=== PATIENT | female | born 1985 | race Caucasian/White ===

== ENCOUNTER 2017-04-26 11:16 | Emergency (ER) | payer OTHER ==
[~2017-04-26] VITALS: Ht 172.7 cm; Wt 63.6 kg
[~2017-04-26 11:16] MED LIST: IBUP800T28 PO; PREN1TAB47 PO
[2017-04-26 11:18] VITALS: BP 109/76; PULSE 72; RESP 15; O2SAT 100
--- NOTE | 2017-04-26 11:31 | ED.REPORT ---
HPI-Abd Pain F Under 40 Date of Service Apr 26, 2017 ED Provider: Rema Steele History of Present Illness: 31-year-old female here for right lower quadrant abdominal pain 3 days. He has been constant and annoying at a 5/10 on the pain scale. Tylenol helped a little bit. On day 1 she felt a little feverish, lightheaded, body aches but this has all resolved. At this point she feels okay just has the right lower quadrant pain still. No urinary symptoms, she is able to eat and drink although she has a decreased appetite. She has no history of ovarian cysts. She is not . has had a vasectomy. Last menstrual period 04/11/2017. No vaginal discharge. She is not nauseous and is not vomiting. No diarrhea or constipation. Her bowel movements seem to alleviate the pain a little bit. No history of abdominal surgeries. sHe is otherwise healthy. When asked to point to the pain she points on the lateral right lower abdomen. Nursing Notes Stated Complaint: RT SIDE PAIN Chief Complaint: Female Abdominal Pain Nursing Notes Reviewed: Yes Allergies: Coded Allergies: No Known Allergies (Verified Allergy, Unknown, 04/26/17) No Active Prescriptions or Reported Meds General Time Seen by MD: 11:24 Chief Complaint Abdominal pain Hx Obtained From: Patient Arrived By: Walk-in Onset Occurred: 3 days ago Symptom Duration: Since onset Progression since Onset: Constant Location: : RLQ Radiation: : Does not radiate Severity: Current: Pain level 5 out of 10 Severity: Maximum: Pain level 5 out of 10 Recent Healthcare: No recent doctor visit Similar Sx Previous: No Past Medical History Past Medical History Notes: denies Past Medical History recently gave on June 08 Past Surgical History none Smoking History Never Smoker Social History Other Social History: Good social support, , Lives with children Ambulatory Status Independent Review of Systems Basic Review of Systems Eyes: Vision NL, No discharge ENT: Hearing NL, No pain, No nasal congestion, No pharyngeal pain Neurologic: NL mental status, No weakness, No numbness Psychiatric: Normal thought content Constitutional: Denies: Chills, Fatigue, Fever Respiratory: Denies: Dyspnea on exertion, Non-productive cough Cardiovascular: Denies: Chest pain GI: Reports: Abdominal pain, Anorexia, Denies: Constipation, Diarrhea, Nausea, Vomiting Female: Denies: Dysuria, Flank pain, Hematuria, Pelvic pain, Urinary frequency, Urinary urgency, Vaginal bleeding - abnl, Vaginal discharge Complete sys rev & neg: except as marked. Physical Exam Initial Vital Signs Vital Signs (First) Date Time Temp Pulse Resp B/P Pulse Ox O2 Delivery O2 Flow Rate FiO2 04/26/17 11:18 36.1 72 15 109/76 100 Initial VS: Reviewed, Vital signs normal Head / Eyes: Atraumatic, Normocephalic, PERRL ENT: Mucous membranes moist, Conjunctiva normal, No scleral icterus Skin: Warm, Dry, No cyanosis Neurologic: Alert, Oriented, Nonfocal Psychiatric: Mood/affect normal, Behavior normal, Normal thought content General/Constitutional: Awake, Alert, No acute distress, Well appearing Respiratory / Chest: Breath sounds NL, Breath sounds = bilat, No respiratory distress, No rales, No rhonchi, No wheezing Cardiovascular: Heart rate NL, Regular rhythm, Heart sounds NL, Peripheral circulation NL Abdomen: Atraumatic, Soft, No guarding, No rebound, BS normoactive, No distention, No hernia, No palpable mass, No pulsatile mass Tenderness/Guarding/Rebound: Positive: Tender RLQ... (Mild) RLQ pain more lateral R abd, not suprapubic Back: Inspection NL, Non-tender, No CVA tenderness Head / Eyes: Normocephalic, PERRL Female Genitourinary: External genitalia NL, No bleeding, No discharge, No cervical motion tend, Os closed, No adnexal mass, No adnexal tenderness, No uterine enlargement, No uterine mass, No lesions or rash vaginal canal pink and moist, normal exam, no d/c, no cmt, no ovarian tenderness Interpretation & Diagnostics Interpretation & Diagnostics: PROCEDURE: US PELVIC SONOGRAM + TRANSVAGINAL SONOGRAM INDICATIONS: RLQ pain TECHNIQUE: Real-time scanning was performed of the pelvic organs, with image documentation. Additional endovaginal scanning was necessary due to incomplete visualization of the adnexal and endometrial structures by transabdominal scanning. COMPARISON: None. FINDINGS: Transabdominal scanning: Limited scanning through the kidneys shows no hydronephrosis. No pathologic free abdominal or pelvic fluid. Endovaginal scanning: Uterus: Uterus is normal in size at 3.7 x 6.2 x 10.5 cm, retroverted. The endometrium measures 9 mm in combined thickness. Ovaries: The right ovary measures 3.9 x 3.5 x 4.6 cm mildly enlarged by a complex right ovarian cyst measuring up to 2.8 x 3.2 x 3.5 cm, containing low-level internal echoes and a single thin septation. The left ovary appears normal and measures 1.8 x 2.4 x 3.6 cm. IMPRESSION: Mildly complex 3.5 cm right ovarian cyst, which is unlikely to represent evidence of cystic neoplasm in this young patient. However, followup pelvic ultrasound in 4-6 weeks is recommended to confirm resolution. Lab Results Interpretation Result Diagram: 04/26/17 1145 04/26/17 1145 Test 04/26/17 11:37 04/26/17 11:45 Hold Urine Received (Received) White Blood Count 3.6th/mm3 (3.8-10.1) Red Blood Count 4.49mil/mm3 (3.90-5.20) Hemoglobin 12.5g/dL (12.0-15.6) Hematocrit 38.0% (35.0-46.0) Mean Corpuscular Volume 84.6fL (81-100) Mean Corpuscular Hemoglobin 27.8pg (27.0-35.0) Mean Corpuscular Hemoglobin Concent 32.9% (32.0-37.0) Red Cell Distribution Width 13.9% (12.3-15.4) Platelet Count 154bil/L (150-400) Neutrophils (%) (Auto) 38.6% (40-74) Lymphocytes (%) (Auto) 46.5% (14-46) Monocytes (%) (Auto) 13.5% (4-12) Eosinophils (%) (Auto) 0.8% (0-5) Basophils (%) (Auto) 0.6% (0-3) Sodium Level 138mEq/L (134-144) Potassium Level 3.9mEq/L (3.5-5.2) Chloride Level 102mEq/L (97-108) Carbon Dioxide Level 23mmol/L (18-29) Blood Urea Nitrogen 10mg/dL (6-20) Creatinine 0.61mg/dL (0.57-1.00) Estimat Glomerular Filtration Rate 163mL/min (>59) Glucose Level 92mg/dL (60-99) Calcium Level 9.1mg/dL (8.5-10.1) Magnesium Level 1.8mg/dL (1.6-2.6) Total Bilirubin 0.3mg/dL (0.0-1.2) Aspartate Amino Transf (AST/SGOT) 14U/L (0-50) Alanine Aminotransferase (ALT/SGPT) 7U/L (0-32) Alkaline Phosphatase 71U/L (25-150) Total Protein 7.1g/dL (6.4-8.4) Albumin 3.7g/dL (3.4-5.0) Lipase 28U/L (13-60) Hold Owens Top Tube Received (Received) Re-Eval/Medical Decision Med Decision/Clinical Course Med Decision/Clinical Course: Us Tech report with complex ovarian cyst. Thought he saw normal appendix but could not confirm. pt ready to go. will call with any changes in ultrasound report. She will follow up with repeat ultrasound. She will see her PCP in one to 2 days, she will return to the ER if pain worsens at any time, if she gets fevers, or nausea or vomiting or if pain persists in 24 hours. PTs pain is minimal at time of discharge. NO white count, normal UA, no rebound, reassuring exam Discharge & Departure Shift Change Sign-Out Laboratory Evaluation: Lab evaluation discussed Imaging Studies: Imaging discussed Procedures: Results discussed Primary Impression: Complex cyst of right ovary Disposition: Home Discharge Condition All VS Reviewed: Yes Condition: Stable Patient Instructions: Ovarian Cyst (ED) Additional Instructions: Take Tylenol or ibuprofen as needed for pain. Lots of rest. Return to ER immediately if he gets fevers, worsening pain, vomiting or any downturn in status. Otherwise follow-up with your doctor in 1-2 days. You will need a repeat ultrasound, likely in 6 weeks. At the time of her discharge your official report was not back. I will call you if anything is different from our plan, otherwise plan on discussing these results with your doctor in 1-2 days. Referrals: Maikel Marmolejo MD (PCP) EDSupervising Provider for APC: Vicente Fernandez MD, Linnea K ARNP Apr 26, 2017 11:31
[2017-04-26 11:54] LABS: BASOPHILS % (AUTO) 0.6 % (0-3); EOSINOPHILS % (AUTO) 0.8 % (0-5); MONOCYTES % (AUTO) 13.5 % (4-12); Mean Corpuscular Hemoglobin 27.8 pg (27.0-35.0); Mean Corpuscular Volume 84.6 fL (81-100); NEUTROPHILS % (AUTO) 38.6 % (40-74); Platelet Count 154 bil/L (150-400)
[2017-04-26 12:22] LABS: Magnesium 1.8 mg/dL (1.6-2.6)
[2017-04-26 13:42] VITALS: BP 101/65; RESP 12
--- NOTE | 2017-04-26 15:32 | DRSVH ---
PROCEDURE: US PELVIC SONOGRAM + TRANSVAGINAL SONOGRAM INDICATIONS: RLQ pain TECHNIQUE: Real-time scanning was performed of the pelvic organs, with image documentation. Additional endovagi nal scanning was necessary due to incomplete visualization of the adnexal and endometrial structures by transabdominal scanning. COMPARISON: None. FINDINGS: Transabdominal scanning: Limited scanning through the kidneys shows no hydronephrosis. No pathologi c free abdominal or pelvic fluid. Endovaginal scanning: Uterus: Uterus is normal in size at 3.7 x 6.2 x 10.5 cm, retroverted. The endometrium measures 9 mm in combined thickness. Ovaries: The right ovary measures 3.9 x 3.5 x 4.6 cm mildly enlarged by a complex right ovarian cyst measuring up to 2.8 x 3.2 x 3.5 cm, containing low-level internal echoes and a single thin septation . The left ovary appears normal and measures 1.8 x 2.4 x 3.6 cm. IMPRESSION: Mildly complex 3.5 cm right ovarian cyst, which is unlikely to represent evidence of cys tic neoplasm in this young patient. However, followup pelvic ultrasound in 4-6 weeks is recommended to confirm resolution. Dictated by: Panchito Dumont M.D. on 04/26/2017 at 15:28 Approved by: Panchito Dumont M.D. on 04/26/2017 at 15:31
[2017-04-26 15:39] VITALS: BP 110/65; PULSE 68; RESP 14; O2SAT 100
== END 2017-04-26 15:40 | disposition home or self-care (01) ==
LOC: SED 11:16
DX: N83.291 Other ovarian cyst, right side (principal)